=== PATIENT | female | born 1945 | race Caucasian/White ===

== ENCOUNTER 2017-02-04 13:01 | Emergency (ER) | payer OTHER ==
[~2017-02-04] VITALS: Ht 165.1 cm; Wt 78.0 kg
--- NOTE | ~2017-02-04 | EKG ---
PATIENT: LEMUEL SABA UNIT #: [id number] Ventricular Rate: 64 BPM Atrial Rate: 64 BPM P-R Interval: 166 ms QRS Duration: 88 ms Q-T Interval: 420 ms QTC Calculation(Bezet): 433 ms P [place]: 51 degrees Calculated R [place]: -13 degrees Calculated T [place]: 82 degrees Diagnosis Line: Normal sinus rhythm Diagnosis Line: Nonspecific ST and T wave abnormality Diagnosis Line: Baseline wander Otherwise normal ECG Diagnosis Line: No previous ECGs available Diagnosis Line: Confirmed by SHARON MORGAN MD ([id number]) on 02/04/2017 Diagnosis Line: 11:09:22 PM INTERPRETING MD: CATHY LUCIA
--- NOTE | ~2017-02-04 | CT71 ---
[facility] A Service of [facility] RADIOLOGY TEXT RESULTS PATIENT: LEMUEL SABA LOCATION: [facility] : 47 UNIT #: [id number] AGE: [address]: Pedro Luis Magaña MD SEX: F ORDER DR: [id number] [facility] [address] [place], [place] [address] [id number] E MR#: [id number] #: [id number] NAME: LEMUEL SABA. : 1945 SEX: F STUDY DATE/TIME: 02/04/2017 14:40 UNIT: [facility] ROOM: STUDY DESCRIPTION: CT Head Wo Contrast Attending Physician: Pedro Luis Magaña M.D. Ordering Physician: Pedro Luis Magaña M.D. Primary Care Physician: Marcia Solares A.P.R.N. MEDICAL IMAGING REPORT This report is preliminary unless electronic signature is present EXAM Noncontrast CT head. Date: 02/04/2017 at 14:40. HISTORY Frontal headache with elevated blood pressure today. Woke up last night with headache. Hypertension. Previous stroke. Diabetes. TECHNIQUE This CT exam was performed with one or more of the following radiation dose reduction techniques: automatic exposure control, adjustment of mA and/or kV according to patient size, and iterative reconstruction. COMPARISON Noncontrast CT head 04/05/2013. FINDINGS Mild generalized atrophy with compensatory prominence of the ventricles and extraaxial spaces. No acute intracranial hemorrhage, mass lesion, mass effect or midline shift. No CT evidence of acute or evolving infarct. Calvaria is within normal limits. Minimal ethmoid sinus mucosal thickening. Mastoid air cells are clear. IMPRESSION 1. Mild age-appropriate parenchymal atrophy. No acute intracranial findings. Dictated by... Karmen Anderson M.D. THIS IS AN ELECTRONICALLY VERIFIED REPORT Karmen Anderson M.D. at 02/06/2017 9:51 AM [facility] A Service of [facility] RADIOLOGY TEXT RESULTS PATIENT: LEMUEL SABA LOCATION: [facility] : 47 UNIT #: [id number] AGE: [address]: Pedro Luis Magaña MD SEX: F ORDER DR: MOISES/khris TD: 02/05/2017 12:15 JOB #: [id number] MEDICAL IMAGING REPORT Page 1 of 1 COPY
--- NOTE | ~2017-02-04 | CR91 ---
[facility] A Service of [facility] RADIOLOGY TEXT RESULTS PATIENT: LEMUEL SABA LOCATION: [facility] : 47 UNIT #: [id number] AGE: [address]: Pedro Luis Magaña MD SEX: F ORDER DR: [id number] [facility] [address] [place], [place] [address] [id number] E MR#: [id number] Acc #: [id number] NAME: LEMUEL SABA. : 1945 SEX: F STUDY DATE/TIME: 02/04/2017 13:49 UNIT: [facility] ROOM: STUDY DESCRIPTION: CR Elbow 2 View Rt Attending Physician: Pedro Luis Magaña M.D. Ordering Physician: Pedro Luis Magaña M.D. Primary Care Physician: Marcia Solares A.P.R.N. MEDICAL IMAGING REPORT This report is preliminary unless electronic signature is present EXAM 2 views right elbow, 02/04/2017 HISTORY 71-year-old female with right elbow pain for 1 week. No known injury. COMPARISON Right elbow radiographs, 07/10/2015 FINDINGS No acute displaced fracture is identified. There is spurring at the coronoid process of the ulnar olecranon, similar to the prior exam. Small radial head spur. No joint effusion. No fracture. No dislocation. No retained radiopaque foreign body. 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 No acute abnormality of the right elbow. Dictated by... Karmen Anderson M.D. THIS IS AN ELECTRONICALLY VERIFIED REPORT Karmen Anderson M.D. at 02/06/2017 9:51 AM MOISES/sonu TD: 02/05/2017 12:02 JOB #: [id number] MEDICAL IMAGING REPORT Page 1 of 1 COPY
[~2017-02-04 13:01] MED LIST: ALPRAZOLAM PO; ALPRAZOLAM0.5 MG PO; BYSTOLIC10 MG PO; CALTRATE 600 W-1 TAB PO; CANNOT REMEMBER MEDS; CARDIZEM; CARDURA4 M1 PO; CATAPRES0.1 MG PO; CELEBREX PO; CLONIDINE HCL0.1 MG PO; CRESTOR10 MG PO; CRESTOR40 MG PO; DOXAZOSIN MESYLA4 MG PO; FLEXERIL10 MG PO; FUROSEMIDE40 MG PO; GLYCOLAX14 EA PO; HUMULIN 70/30 V10 ML; HYDROCODON-ACE1 EAC9 PO; IMODIUM2 MG PO; INSULIN SUBQ; KCL PO; KEFLEX PO; LASIX PO; LIDODERM 5%; MAGNESIUM250 M1 PO; MICRO-K; NEXIUM PO; NITROSTAT0.4 MG SL; NORVASC PO; PERCOCET 7.5-31 EACH PO; POTASSIUM CL PO; SERTRALINE HCL100 MG PO; SYNTHROID25 MCG PO; VICODIN 5/500 T1 TAB PO; VITAMIN C500 M1 PO; [UNRECOGNIZED DRUG - OTHER]; [UNRECOGNIZED DRUG - OTHER]; [UNRECOGNIZED DRUG - OTHER] SUBQ; lidoderm TOP
[2017-02-04 14:24] LABS: POC - CKMB <1.0 ng/mL (0.0-7.9); POC - TROPONIN <0.05 ng/mL (<=0.05)
[2017-02-04 14:28] LABS: BASOPHIL% 0.5 % (0-2.5); EOSINOPHIL# 0.1 X10e3 (0-0.7); EOSINOPHIL% 1.9 % (0.0-7.0); HEMATOCRIT 35.7 % (35.0-45.0); HEMOGLOBIN 12.6 gm/dL (12.0-16.0); LYMPHOCYTE# 1.1 X10e3 (1.0-3.5); LYMPHOCYTE% 17.4 % (17.0-45.0); MEAN CELL VOLUME 86.1 FL (83-96); MEAN CORPUSCULAR HEMOGLOBIN 30.3 PG (28-34); MEAN CORPUSCULAR HGB CONC 35.3 g/dL (30-36); MEAN PLATELET VOLUME 8.7 FL (6.5-11.5); MONOCYTE# 0.3 X10e3 (0-1.0); MONOCYTE% 5.3 % (3.0-12.0); NEUTROPHIL# 4.7 X10e3 (1.5-7.1); NEUTROPHIL% 74.9 % (40-75); RED BLOOD COUNT 4.14 X10e (3.90-5.30); RED CELL DISTRIBUTION WIDTH 14.4 % (11.0-15.5); WHITE BLOOD COUNT 6.3 X10e3 (4.0-10.5)
[2017-02-04 14:39] LABS: PROTHROMBIN TIME (PATIENT) 10.5 SECONDS (10.0-11.7)
[2017-02-04 14:43] LABS: ALBUMIN SERUM 4.3 g/dL (3.5-5.0); BILIRUBIN, DIRECT 0.1 mg/dL (0.0-0.2); BILIRUBIN,INDIRECT 0.8 mg/dL (0.0-0.9); BILIRUBIN,TOTAL 0.9 mg/dL (0.2-2.0); BUN/CREATININE RATIO 24.28; CALCIUM SERUM 9.1 mg/dL (8.4-10.2); CREATININE SERUM 0.7 mg/dL (0.6-1.4); GLOM FILT RATE Estimated 87.8 mL/min (>60); POTASSIUM 3.8 mmol/L (3.5-5.1); PROTEIN TOTAL SERUM 7.1 g/dL (6.0-8.3)
[2017-02-04 15:05] LABS: DIFF IND NO; PLATELET COUNT 78 X10e3 (140-420)
== END 2017-02-04 15:52 | disposition home or self-care (01) ==
LOC: CED 13:01
PROVIDERS: Emergency Medicine
DX: I16.0 Hypertensive urgency (principal); R51 Headache; M25.521 Pain in right elbow; Z88.0 Allergy status to penicillin; Z88.8 Allergy status to other drugs, medicaments and biological substances; Z79.899 Other long term (current) drug therapy
CPT/HCPCS: 36415; 70450; 73070; 80048; 80076; 82553; 84484; 85025; 85610; 85730; 93005; 96374; 99285; J1885